=== PATIENT | female | born 1990 | race Caucasian/White ===

== ENCOUNTER 2018-11-11 03:39 | Inpatient (IN) | payer BC ==
[~2018-11-11 03:39] MED LIST: Bupivacaine 0.25% 10 ML SDV ONE
[2018-11-11] MEDS ORDERED: Nalbuphine 10 MG/1 ML Vial IVPUSH PRN (04:18)
[2018-11-11] MEDS ORDERED: Calcium Carbonate 500 MG Tab.Chew PO PRN (04:18)
[2018-11-11] MEDS ORDERED: Ondansetron 4 MG/2 ML SDV IVPUSH PRN ×2 (04:18→05:22)
[2018-11-11] MEDS ORDERED: Sodium Chloride 0.9% 10 ML Syringe FLUSH PRN (04:18)
[2018-11-11] MEDS ORDERED: Lidocaine 1% 50 ML MDV INJECT ONE (04:18)
[2018-11-11] MEDS: Lactated Ringers 1,000 ML IV SCH ×3 (04:20→07:40)
[2018-11-11] MEDS ORDERED: Oxytocin/Lactated Ringers 10 UNIT/1,000 ML BAG IV SCH ×2 (04:30)
[2018-11-11] MEDS ORDERED: Sodium Chloride 0.9% 500 ML ONE (04:56)
[2018-11-11] MEDS ORDERED: Vancomycin 2 GM in Sodium Chloride 0.9% 500 ML IV ONE (05:00)
[2018-11-11] MEDS ORDERED: ePHEDrine 50 MG/ML SDV IVPUSH PRN (05:22)
[2018-11-11] MEDS ORDERED: fentaNYL 100 MCG/2 ML SDV EPIDUR PRN (05:22)
--- NOTE | 2018-11-11 05:26 | PCM.PREANE ---
Preanesthetic Assessment - Anesthesia/Transfusion/Family Hx Anesthesia History: Prior Anesthesia Without Reaction Family History of Anesthesia Reaction: No Transfusion History: No Prior Transfusion(s) Intubation History: Unknown - Review of Systems General: No Symptoms Pulmonary: No Symptoms Cardiovascular: No Symptoms Gastrointestinal: No Symptoms Neurological: No Symptoms Other: Reports: None - Physical Assessment NPO Status Date: 11/10/18 NPO Status Time: 14:00 Vital Signs: HR:64 BP: 124/77 Resp: 16 Sat: 99% Temp: 97.3F Height: 1.6 m Weight: 86.183 kg ASA Class: 2 Mental Status: Alert & Oriented x3 Airway Class: Mallampati = 2 Dentition: Reports: Normal Dentition, Caries Thyro-Mental Finger Breadths: 3 Mouth Opening Finger Breadths: 3 ROM/Head Extension: Full Lungs: Clear to Auscultation, Normal Respiratory Effort Cardiovascular: Regular Rate, Regular Rhythm, No Murmurs - Lab Values: Laboratory Last Values WBC 11.34 K/mm3 (3.98-10.04) H 11/11/18 04:48 RBC 3.93 M/mm3 (3.98-5.22) L 11/11/18 04:48 Hgb 11.6 gm/L (11.2-15.7) 11/11/18 04:48 Hct 35.3 % (34.1-44.9) 11/11/18 04:48 MCV 89.8 fl (79.4-94.8) D 11/11/18 04:48 MCH 29.5 pg (25.6-32.2) 11/11/18 04:48 MCHC 32.9 g/dl (32.2-35.5) 11/11/18 04:48 RDW Std Deviation 45.1 fL (36.4-46.3) 11/11/18 04:48 Plt Count 155 K/mm3 (182-369) L 11/11/18 04:48 MPV 11.7 fl (9.4-12.3) 11/11/18 04:48 Above labs reviewed and noted and within acceptable ranges to proceed with epidural. - Allergies Allergies/Adverse Reactions: Allergies Allergy/AdvReac Type Severity Reaction Status Date / Time azithromycin [From Zithromax] Allergy Hives Verified 11/11/18 04:18 cephalexin Allergy Hives Verified 11/11/18 04:18 Penicillins Allergy Hives Verified 11/11/18 04:18 - Anesthesia Plan Pre-Op Medication Ordered: None - Acknowledgements Anesthesia Type Planned: Epidural Pt an Appropriate Candidate for the Planned Anesthesia: Yes Alternatives and Risks of Anesthesia Discussed w Pt/Guardian: Yes Pt/Guardian Understands and Agrees with Anesthesia Plan: Yes PreAnesthesia Questionnaire - CURRENT (IN HOUSE) MEDS Current Meds: Current Medications Calcium Carbonate/Glycine (Tums) 1,000 mg PO Q2H PRN PRN Reason: Indigestion Ephedrine Sulfate (Ephedrine Sulfate) 5 mg IVPUSH ASDIRECTED PRN PRN Reason: Hypotension Fentanyl (Sublimaze) 100 mcg EPIDUR Q3H PRN PRN Reason: Pain Fentanyl/Bupivacaine HCl (Fentanyl/Bupivacaine/Ns 2 Mcg-0.125% 100 Ml) 100 ml EPIDUR ASDIRECTED SHANE Lactated Ringer's (Ringers, Lactated) 1,000 mls @ 100 mls/hr IV ASDIRECTED SHANE Oxytocin/Lactated Ringer's (Pitocin In Lr 10 Units/1,000 Ml) 10 unit in 1,000 mls @ 12 mls/hr IV TITRATE SHANE; Protocol Oxytocin/Lactated Ringer's (Pitocin In Lr 10 Units/1,000 Ml) 10 unit in 1,000 mls @ 500 mls/hr IV .CONTINUOUS SHANE Vancomycin HCl 1 gm/ Sodium (Chloride) 250 mls @ 250 mls/hr IV Q12H SHANE Vancomycin HCl 2 gm/ Sodium (Chloride) 500 mls @ 250 mls/hr IV ONETIME ONE Stop: 11/11/18 06:59 Phenylephrine HCl 1 mg/ Sodium (Chloride) 10.1 mls @ 1 mls/sec IV TITRATE SHANE; Protocol Nalbuphine HCl (Nubain) 10 mg IVPUSH Q2H PRN PRN Reason: Pain Ondansetron HCl (Zofran) 4 mg IVPUSH Q4H PRN PRN Reason: Nausea/Vomiting Ondansetron HCl (Zofran) 4 mg IVPUSH ONETIME PRN PRN Reason: Nausea/Vomiting Sodium Chloride (Saline Flush) 10 ml FLUSH ASDIRECTED PRN PRN Reason: Keep Vein Open Discontinued Medications Vancomycin HCl 1 gm/ Sodium (Chloride) 250 mls @ 250 mls/hr IV Q12H SHANE Vancomycin HCl 1 gm/ Sodium (Chloride) 250 mls @ 250 mls/hr IV Q12H SHANE Sodium Chloride (Normal Saline) Confirm Administered Dose 500 mls @ as directed .ROUTE .[facility]-MED ONE Stop: 11/11/18 04:57 Lidocaine HCl (Xylocaine 1%) 50 ml INJECT ONETIME ONE Stop: 11/11/18 04:19
[2018-11-11] MEDS ORDERED: Bupivacaine/fentaNYL/NS 100 ML Bag EPIDUR SCH (05:30)
[2018-11-11] MEDS ORDERED: Phenylephrine 1 MG in Sodium Chloride 0.9% 10 ML IV SCH (05:30)
--- NOTE | 2018-11-11 06:20 | PCM.LDHP ---
L&D History of Present Illness - General Date of Service: 11/11/18 Admit Problem/Dx: Patient Status Order with Admit Dx/Problem 11/11/18 04:40 Admission Status [Patient Status] [ADT] Routine Admission Diagnosis/Problem Admission Diagnosis/Problem Source of Information: Patient History Limitations: Reports: No Limitations - History of Present Illness Introduction:: 28 yo at 40+ weeks gestation had SROM at home this am about 0230. She came in to the hospital and was 4 cm dilated on admission with strong regular contractions about every 2 minutes. Fluid is meconium stained. Her has been complicated by GBS positive vaginal swab and she is allergic to PCN and Cephalexin. The sensitivities for the GBS showed clindamycin resistance. Vancomycin 1 gm IV was ordered and started at about 0500. She transferred to my care from [place] at 30 weeks. labs all wnl and blood type O positive. Her 1 hour glucola was 76. She has had her Tdap. She was 6 cm at about 0430 and I came in to the hospital. Epidural was placed and dosed at about 6 am. Pain Score: 10 - Related Data Allergies/Adverse Reactions: Allergies Allergy/AdvReac Type Severity Reaction Status Date / Time azithromycin [From Zithromax] Allergy Hives Verified 11/11/18 04:18 cephalexin Allergy Hives Verified 11/11/18 04:18 Penicillins Allergy Hives Verified 11/11/18 04:18 Past Medical History - Past Health History Medical/Surgical History: Denies Medical/Surgical History [employer] History: Reports: Social & Family History - Family History Family Medical History: Noncontributory - Tobacco Use Smoking Status *Q: Never Smoker Tobacco Use Within Last Twelve Months: No - Alcohol Use Alcohol Use History: No - Recreational Drug Use Recreational Drug Use: No Drug Use in Last 12 Months: No - Living Situation & Occupation Living situation: Reports: 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) H&P Review of Systems - Review of Systems: Review Of Systems: See Below General: Reports: No Symptoms HEENT: Reports: No Symptoms Pulmonary: Reports: No Symptoms Cardiovascular: Reports: No Symptoms Gastrointestinal: Reports: No Symptoms Genitourinary: Reports: No Symptoms Musculoskeletal: Reports: No Symptoms Skin: Reports: No Symptoms Psychiatric: Reports: No Symptoms Neurological: Reports: No Symptoms Hematologic/Lymphatic: Reports: No Symptoms Immunologic: Reports: No Symptoms L&D Exam - Exam Exam: See Below - Vital Signs Weight: 86.183 kg - OB Specific Contraction Intensity: Strong Movement: Active Heart Tones: Present Heart Tones per Min: 125 Heart Rate (FHR) Variability: Moderate (6-25 bmp) Presentation: Vertex - Vogt Score Vogt Score Cervix Position: Anterior Vogt Score Consistency: Soft Vogt Score Effacement: >80% Vogt Score Dilation: > 5 cm Vogt Score Infant's Station: +1, +2 Vogt Score Total: 13 - Exam General: Alert, Oriented, Moderate Distress (Moderate distress with her contractions) HEENT: Conjunctiva Clear, Mucosa Moist & [place] Neck: Supple, Trachea Midline Lungs: Normal Respiratory Effort Cardiovascular: Regular Rate, Regular Rhythm Rectal Exam: Deferred Genitourinary: Normal external exam Back Exam: Normal Inspection, Full Range of Motion Extremities: Normal Inspection, No Pedal Edema Skin: Warm, Dry, Intact Neurological: Cranial Nerves Intact Psychiatric: Alert - Patient Data Lab Results Last 24 hrs: Laboratory Results - last 24 hr 11/11/18 Range/Units 04:48 WBC 11.34 H (3.98-10.04) K/mm3 RBC 3.93 L (3.98-5.22) M/mm3 Hgb 11.6 (11.2-15.7) gm/L Hct 35.3 (34.1-44.9) % MCV 89.8 D (79.4-94.8) fl MCH 29.5 (25.6-32.2) pg MCHC 32.9 (32.2-35.5) g/dl RDW Std Deviation 45.1 (36.4-46.3) fL Plt Count 155 L (182-369) K/mm3 MPV 11.7 (9.4-12.3) fl Result Diagrams: 11/11/18 04:48 - Problem List (1) Active labor at term SNOMED Code(s): 26986095 ICD Code: EAP9278 - Status: Acute Current Visit: Yes (2) Group B streptococcal carriage complicating SNOMED Code(s): 482948265800504 ICD Code: O99.820 - STREPTOCOCCUS B CARRIER STATE COMPLICATING Status: Acute Priority: High Current Visit: Yes (3) Thin meconium stained amniotic fluid SNOMED Code(s): 972678993 ICD Code: P96.83 - MECONIUM STAINING Status: Acute Priority: High Current Visit: Yes Problem List Initiated/Reviewed/Updated: Yes Orders Last 24hrs: Active Orders 24 hr Category Date Time Status Admission Status [Patient Status] [ADT] Routine ADT 11/11/18 04:40 Active Activity as Tolerated [RC] PFP Care 11/11/18 04:18 Active Communication Order [RC] ASDIRECTED Care 11/11/18 04:18 Active Heart Tones [RC] ASDIRECTED Care 11/11/18 04:19 Active Non Stress Test [RC] PER UNIT ROUTINE Care 11/11/18 04:18 Active Notify Provider [RC] ASDIRECTED Care 11/11/18 05:22 Active Notify Provider [RC] PFP Care 11/11/18 04:18 Active Notify Provider [RC] PRN Care 11/11/18 04:18 Active Oxygen Therapy [RC] ASDIRECTED Care 11/11/18 05:21 Active Peripheral IV Care [RC] . DIRECTED Care 11/11/18 04:19 Active Pulse Oximetry [RC] ASDIRECTED Care 11/11/18 05:21 Active Vital Signs [RC] PER UNIT ROUTINE Care 11/11/18 04:18 Active Regular Diet [DIET] Diet 11/11/18 Breakfast Active RAPID PLASMA REAGIN,RPR [CHEM] Routine Lab 11/11/18 04:48 Received Bupivacaine/fentaNYL/NS [fentaNYL/Bupivacaine/NS 2 MCG- Med 11/11/18 05:30 Active 0.125% 100 ML] 100 ml EPIDUR ASDIRECTED Calcium Carbonate [Tums] Med 11/11/18 04:18 Active 1,000 mg PO Q2H PRN Lactated Ringers [Ringers, Lactated] 1,000 ml Med 11/11/18 04:30 Active IV ASDIRECTED Nalbuphine [Nubain] Med 11/11/18 04:18 Active 10 mg IVPUSH Q2H PRN Ondansetron [Zofran] Med 11/11/18 05:22 Active 4 mg IVPUSH ONETIME PRN Ondansetron [Zofran] Med 11/11/18 04:18 Active 4 mg IVPUSH Q4H PRN Oxytocin/Lactated Ringers [Pitocin in LR 10 Units/1,000 Med 11/11/18 04:30 Active ML] 10 unit in 1,000 ml IV .CONTINUOUS Oxytocin/Lactated Ringers [Pitocin in LR 10 Units/1,000 Med 11/11/18 04:30 Active ML] 10 unit in 1,000 ml IV TITRATE Phenylephrine [Jaime-Synephrine] 1 mg Med 11/11/18 05:30 Active Sodium Chloride 0.9% [Normal Saline] 10 ml IV TITRATE Sodium Chloride 0.9% [Saline Flush] Med 11/11/18 04:18 Active 10 ml FLUSH ASDIRECTED PRN Vancomycin 2 gm Med 11/11/18 05:00 Active Sodium Chloride 0.9% [Normal Saline] 500 ml IV ONETIME Vancomycin [Vancocin] 1 gm Med 11/11/18 17:00 Active Sodium Chloride 0.9% [Normal Saline (AdvBag)] 250 ml IV Q12H ePHEDrine [ePHEDrine sulfate] Med 11/11/18 05:22 Active 5 mg IVPUSH ASDIRECTED PRN fentaNYL [Sublimaze] Med 11/11/18 05:22 Active 100 mcg EPIDUR Q3H PRN Electronic Heart Tones Ext w TOCO [WOMSER] Oth 11/11/18 04:18 Ordered Routine Electronic Heart Tones Internal [WOMSER] Per Unit Oth 11/11/18 04:18 Ordered Routine Peripheral IV Insertion Adult [OM.PC] Routine Oth 11/11/18 04:18 Ordered Resuscitation Status Routine Resus Stat 11/11/18 04:18 Ordered Medication Orders Calcium Carbonate/Glycine (Tums) 1,000 mg PO Q2H PRN PRN Reason: Indigestion Ephedrine Sulfate (Ephedrine Sulfate) 5 mg IVPUSH ASDIRECTED PRN PRN Reason: Hypotension Fentanyl (Sublimaze) 100 mcg EPIDUR Q3H PRN PRN Reason: Pain Last Admin: 11/11/18 05:40 Dose: 100 mcg Fentanyl/Bupivacaine HCl (Fentanyl/Bupivacaine/Ns 2 Mcg-0.125% 100 Ml) 100 ml EPIDUR ASDIRECTED [facility] Last Admin: 11/11/18 05:39 Dose: 100 ml Lactated Ringer's (Ringers, Lactated) 1,000 mls @ 100 mls/hr IV ASDIRECTED [facility] Last Admin: 11/11/18 05:25 Dose: 100 mls/hr Infusion: 11/11/18 05:25 Dose: 100 mls/hr Admin: 11/11/18 04:20 Dose: 100 mls/hr Oxytocin/Lactated Ringer's (Pitocin In Lr 10 Units/1,000 Ml) 10 unit in 1,000 mls @ 12 mls/hr IV TITRATE SHANE; Protocol Oxytocin/Lactated Ringer's (Pitocin In Lr 10 Units/1,000 Ml) 10 unit in 1,000 mls @ 500 mls/hr IV .CONTINUOUS SHANE Vancomycin HCl 1 gm/ Sodium (Chloride) 250 mls @ 250 mls/hr IV Q12H SHANE Vancomycin HCl 2 gm/ Sodium (Chloride) 500 mls @ 250 mls/hr IV ONETIME ONE Stop: 11/11/18 06:59 Last Admin: 11/11/18 05:20 Dose: 250 mls/hr Phenylephrine HCl 1 mg/ Sodium (Chloride) 10.1 mls @ 1 mls/sec IV TITRATE SHANE; Protocol Nalbuphine HCl (Nubain) 10 mg IVPUSH Q2H PRN PRN Reason: Pain Ondansetron HCl (Zofran) 4 mg IVPUSH Q4H PRN PRN Reason: Nausea/Vomiting Ondansetron HCl (Zofran) 4 mg IVPUSH ONETIME PRN PRN Reason: Nausea/Vomiting Sodium Chloride (Saline Flush) 10 ml FLUSH ASDIRECTED PRN PRN Reason: Keep Vein Open Assessment/Plan Comment:: female at 40 2/7 weeks gestation with SROM at home this am for meconium stained fluid. Currently in active labor. She is GBS positive with PCN and Cephalexin allergies and has Vancomycin 1 gm IV currently infusing. She has epidural in place and is comfortable. FHR is category I. Plan: Expectant management of labor, anticipate vaginal delivery. She plans to breast feed. Will need to monitor baby closely due to GBS positive and will probably have insufficient prophylaxis due to speed of labor.
--- NOTE | 2018-11-11 09:36 | PCM.DEL ---
L & D Note - General Info Date of Service: 11/11/18 Mother's Due Date: 11/09/18 - Delivery Note Labor: Spontaneous Delivery Outcome: Livebirth Infant Delivery Method: Spontaneous Vaginal Delivery-Single Infant Delivery Mode: Spontaneous Presentation: Right Occiput Anterior (CHRISTOPHER) Nuchal Cord: None Prep: Povidone-Iodine (Betadine Anesthesia Type: Epidural Amniotic Fluid Description: Meconium Stained Episiotomy Type: None Laceration: None Placenta: Intact, Spontaneous Cord: 3 Vessels Estimated Blood Loss: 100 Resuscitation Needed: No [place]: Suctioned, Bulb Syringe, Stimulated, Warmed, [place] Used Provider: Tabitha Mckeon Score 1 min: 7 Score 5 min: 9 Delivery Comments (Free Text/Narrative):: 28 yo at 40+2 weeks gestation had SROM at home this am about 0230. She came in to the hospital and was 4 cm dilated on admission with strong regular contractions about every 2 minutes. Fluid is meconium stained. Her has been complicated by GBS positive vaginal swab and she is allergic to PCN and Cephalexin. The sensitivities for the GBS showed clindamycin resistance. Vancomycin 1 gm IV was ordered and started at about 0500 and infusion complete about 0700. She transferred to my care from [place] at 30 weeks. labs all wnl and blood type O positive. Her 1 hour glucola was 76. She has had her Tdap. She was 6 cm at about 0430 and I came in to the hospital. Epidural was placed and dosed at about 6 am. She was 7 cm dilated at the time of epidural and contractions spaced out so we did start pitocin to augment labor at about 0800. Fetus tolerated labor with occasional variable decels and moderate variability. She was completely dilated at 0835 and she started pushing at 0844. She pushed well and baby's head was delivered from CHRISTOPHER position. The mouth and nose were suctioned with bulb suction at the perineum. There was no nuchal cord. The rest of the baby delivered without difficulty at 0851. Baby was vigorous and crying and is a baby girl. She was dried and stimulated, mouth and nose were again suctioned and baby was placed on mother's abdomen. Once cord stopped pulsating, it was clamped and cut. Placenta delivered spontaneously at 0856 and was intact. EBL was 100 ml. Fundus was firm after delivery and perineum was intact. Both Mom and baby were left in the delivery room in stable condition. - General Info Date of Service: 11/11/18 Admission Dx/Problem (Free Text): Patient Status Order with Admit Dx/Problem 11/11/18 04:40 Admission Status [Patient Status] [ADT] Routine Admission Diagnosis/Problem Admission Diagnosis/Problem Functional Status: Reports: Pain Controlled - Review of Systems General: Reports: No Symptoms HEENT: Reports: No Symptoms Pulmonary: Reports: No Symptoms Cardiovascular: Reports: No Symptoms Gastrointestinal: Reports: No Symptoms Genitourinary: Reports: No Symptoms Musculoskeletal: Reports: No Symptoms Skin: Reports: No Symptoms Neurological: Reports: No Symptoms Psychiatric: Reports: No Symptoms - Patient Data Vitals - Most Recent: Last Vital Signs Temp 36.3 C 11/11/18 04:18 Pulse 77 11/11/18 04:18 Resp 16 11/11/18 04:18 BP 124/77 11/11/18 04:18 Pulse Ox 99 11/11/18 04:18 Weight - Most Recent: 86.183 kg Lab Results Last 24 Hours: Laboratory Results - last 24 hr 11/11/18 Range/Units 04:48 WBC 11.34 H (3.98-10.04) K/mm3 RBC 3.93 L (3.98-5.22) M/mm3 Hgb 11.6 (11.2-15.7) gm/L Hct 35.3 (34.1-44.9) % MCV 89.8 D (79.4-94.8) fl MCH 29.5 (25.6-32.2) pg MCHC 32.9 (32.2-35.5) g/dl RDW Std Deviation 45.1 (36.4-46.3) fL Plt Count 155 L (182-369) K/mm3 MPV 11.7 (9.4-12.3) fl Med Orders - Current: Current Medications Calcium Carbonate/Glycine (Tums) 1,000 mg PO Q2H PRN PRN Reason: Indigestion Ephedrine Sulfate (Ephedrine Sulfate) 5 mg IVPUSH ASDIRECTED PRN PRN Reason: Hypotension Fentanyl (Sublimaze) 100 mcg EPIDUR Q3H PRN PRN Reason: Pain Last Admin: 11/11/18 05:40 Dose: 100 mcg Fentanyl/Bupivacaine HCl (Fentanyl/Bupivacaine/Ns 2 Mcg-0.125% 100 Ml) 100 ml EPIDUR ASDIRECTED SHANE Last Admin: 11/11/18 05:39 Dose: 100 ml Lactated Ringer's (Ringers, Lactated) 1,000 mls @ 100 mls/hr IV ASDIRECTED SHANE Last Admin: 11/11/18 07:40 Dose: 100 mls/hr Oxytocin/Lactated Ringer's (Pitocin In Lr 10 Units/1,000 Ml) 10 unit in 1,000 mls @ 12 mls/hr IV TITRATE SHANE; Protocol Last Titration: 11/11/18 08:25 Dose: 4 munits/min, 24 mls/hr Oxytocin/Lactated Ringer's (Pitocin In Lr 10 Units/1,000 Ml) 10 unit in 1,000 mls @ 500 mls/hr IV .CONTINUOUS SHANE Vancomycin HCl 1 gm/ Sodium (Chloride) 250 mls @ 250 mls/hr IV Q12H SHANE Phenylephrine HCl 1 mg/ Sodium (Chloride) 10.1 mls @ 1 mls/sec IV TITRATE SHANE; Protocol Nalbuphine HCl (Nubain) 10 mg IVPUSH Q2H PRN PRN Reason: Pain Ondansetron HCl (Zofran) 4 mg IVPUSH Q4H PRN PRN Reason: Nausea/Vomiting Ondansetron HCl (Zofran) 4 mg IVPUSH ONETIME PRN PRN Reason: Nausea/Vomiting Sodium Chloride (Saline Flush) 10 ml FLUSH ASDIRECTED PRN PRN Reason: Keep Vein Open Discontinued Medications Vancomycin HCl 1 gm/ Sodium (Chloride) 250 mls @ 250 mls/hr IV Q12H SHANE Vancomycin HCl 1 gm/ Sodium (Chloride) 250 mls @ 250 mls/hr IV Q12H SHANE Vancomycin HCl 2 gm/ Sodium (Chloride) 500 mls @ 250 mls/hr IV ONETIME ONE Stop: 11/11/18 06:59 Last Admin: 11/11/18 05:20 Dose: 250 mls/hr Sodium Chloride (Normal Saline) Confirm Administered Dose 500 mls @ as directed .ROUTE .[facility] ONE Stop: 11/11/18 04:57 Lidocaine HCl (Xylocaine 1%) 50 ml INJECT ONETIME ONE Stop: 11/11/18 04:19 - Exam General: Alert, Oriented HEENT: Pupils Equal Neck: Supple Lungs: Normal Respiratory Effort Cardiovascular: Regular Rate, Regular Rhythm (Female) Exam: Normal External Exam Extremities: Normal Inspection, No Pedal Edema Skin: Warm, Dry, Intact Neurological: No New Focal Deficit Psy/Mental Status: Alert, Normal Affect, Normal Mood - Problem List & Annotations (1) Active labor at term SNOMED Code(s): 75659637 Code(s): QJK0490 - Status: Resolved Current Visit: Yes (2) Group B streptococcal carriage complicating SNOMED Code(s): 066681200603756 Code(s): O99.820 - STREPTOCOCCUS B CARRIER STATE COMPLICATING Status: Acute Priority: High Current Visit: Yes (3) Thin meconium stained amniotic fluid SNOMED Code(s): 455091560 Code(s): P96.83 - MECONIUM STAINING Status: Acute Priority: High Current Visit: Yes (4) Normal spontaneous vaginal delivery SNOMED Code(s): 76700485, 480160365 Code(s): O80 - ENCOUNTER FOR FULL-TERM UNCOMPLICATED DELIVERY Status: Acute Current Visit: Yes (5) Post term over 40 weeks SNOMED Code(s): 338684200 Code(s): O48.0 - POST-TERM Status: Acute Current Visit: Yes - Problem List Review Problem List Initiated/Reviewed/Updated: Yes - My Orders Last 24 Hours: My Active Orders 11/11/18 04:18 Activity as Tolerated [RC] PFP Communication Order [RC] ASDIRECTED Notify Provider [RC] PFP Notify Provider [RC] PRN Vital Signs [RC] PER UNIT ROUTINE Calcium Carbonate [Tums] 1,000 mg PO Q2H PRN Nalbuphine [Nubain] 10 mg IVPUSH Q2H PRN Ondansetron [Zofran] 4 mg IVPUSH Q4H PRN Sodium Chloride 0.9% [Saline Flush] 10 ml FLUSH ASDIRECTED PRN Electronic Heart Tones Ext w TOCO [WOMSER] Routine Electronic Heart Tones Internal [WOMSER] Per Unit Routine Peripheral IV Insertion Adult [OM.PC] Routine Resuscitation Status Routine 11/11/18 04:19 Peripheral IV Care [RC] . DIRECTED 11/11/18 04:30 Lactated Ringers [Ringers, Lactated] 1,000 ml IV ASDIRECTED Oxytocin/Lactated Ringers [Pitocin in LR 10 Units/1,000 ML] 10 unit in 1,000 ml IV .CONTINUOUS Oxytocin/Lactated Ringers [Pitocin in LR 10 Units/1,000 ML] 10 unit in 1,000 ml IV TITRATE 11/11/18 04:40 Admission Status [Patient Status] [ADT] Routine 11/11/18 04:48 RAPID PLASMA REAGIN,RPR [CHEM] Routine 11/11/18 09:15 Patient Status Manage Transfer [TRANSFER] Routine 11/11/18 17:00 Vancomycin 1 gm Sodium Chloride 0.9% [Normal Saline] 250 ml IV Q12H 11/11/18 Breakfast Regular Diet [DIET] - Assessment Assessment:: G5 now P5 female at 40+2 weeks gestation with SROM and spontaneous labor and at 0851. She was GBS positive and had 1 dose of vancomycin IV that was infused by 0700 for prophylaxis. She is stable . There was no perineal tear. - Plan Plan:: female at 40 2/7 weeks gestation with SROM at home this am for meconium stained fluid. Currently in active labor. She is GBS positive with PCN and Cephalexin allergies and has Vancomycin 1 gm IV currently infusing. She has epidural in place and is comfortable. FHR is category I. Plan: Expectant management of labor, anticipate vaginal delivery. She plans to breast feed. Will need to monitor baby closely due to GBS positive and will probably have insufficient prophylaxis due to speed of labor. 11/11/18 0930: 1. Routine care. 2. support. 3. Will sign out to Dr. Corado for the weekend.
[2018-11-11] MEDS ORDERED: Acetaminophen 325 MG Tab PO PRN (09:41)
[2018-11-11] MEDS ORDERED: Witch Hazel Medicated Pads 40/Jar TOP PRN (09:41)
[2018-11-11] MEDS ORDERED: Prenatal Multivitamin with Calcium/Folic Acid/Iron Tab PO SCH (09:41)
[2018-11-11] MEDS ORDERED: Lanolin 100% Cream 7 GM Tube TOP PRN (09:41)
[2018-11-11] MEDS ORDERED: Docusate Sodium 100 MG Cap PO PRN (09:41)
[2018-11-11] MEDS: Ibuprofen 600 MG Tab PO PRN ×2 (10:01→17:53)
[2018-11-12] MEDS: Ibuprofen 600 MG Tab PO PRN (02:22)
--- NOTE | 2018-11-12 08:17 | PCM.DCSUM1 ---
Discharge Summary - Hospital Course HPI Initial Comments: Doing great today. 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 Diagnosis: Stroke: No - Discharge Data Discharge Date: 11/12/18 Discharge Disposition: Home, Self-Care 01 Condition: Good - Patient Summary/Data Hospital Course: Unremarkable labor, delivery and course. - Patient Instructions Diet: Usual Diet as Tolerated Activity: No Strenuous Activities Driving: May Drive Today Notify Provider of: Fever, Increased Pain, Swelling and Redness, Drainage, Nausea and/or Vomiting - Discharge Plan *PRESCRIPTION DRUG MONITORING PROGRAM REVIEWED*: No *COPY OF PRESCRIPTION DRUG MONITORING REPORT IN PATIENT DEN: No Home Medications: Home Meds [id number]/Iron Fumarate/FA/DSS [ 19 Tablet] 1 each PO DAILY 11/11/18 [ History] Referrals: Tabitha Mckeon MD [Primary Care Provider] - (2 weeks) - Discharge Summary/Plan Comment DC Time >30 min.: No - General Info Date of Service: 11/12/18 Functional Status: Reports: Pain Controlled - Review of Systems General: Reports: No Symptoms HEENT: Reports: No Symptoms Pulmonary: Reports: No Symptoms Cardiovascular: Reports: No Symptoms Gastrointestinal: Reports: No Symptoms Genitourinary: Reports: No Symptoms Musculoskeletal: Reports: No Symptoms Skin: Reports: No Symptoms Neurological: Reports: No Symptoms Psychiatric: Reports: No Symptoms - Patient Data Vitals - Most Recent: Last Vital Signs Temp 36.8 C 11/12/18 02:27 Pulse 72 11/12/18 02:27 Resp 17 11/12/18 02:27 BP 120/68 11/12/18 02:27 Pulse Ox 97 11/12/18 02:27 Weight - Most Recent: 86.183 kg Lab Results - Last 24 hrs: Laboratory Results - last 24 hr 11/11/18 Range/Units 04:48 RPR Non-reactive (NONREACTIVE) Med Orders - Current: Current Medications Acetaminophen (Tylenol) 650 mg PO Q4H PRN PRN Reason: mild pain or fever Docusate Sodium (Colace) 100 mg PO BID PRN PRN Reason: Constipation Last Admin: 11/11/18 10:03 Dose: 100 mg Emollient Ointment (Lansinoh Hpa) 0 gm TOP ASDIRECTED PRN PRN Reason: Sore Nipples Last Admin: 11/11/18 10:02 Dose: 1 tube Ibuprofen (Motrin) 600 mg PO Q6H PRN PRN Reason: Mild pain or fever Last Admin: 11/12/18 02:22 Dose: 600 mg Prenat Multivit/Primary Education Professor/Iron/Folic Ac ( Plus Iron) 1 each PO DAILY SHANE Last Admin: 11/11/18 10:02 Dose: 1 each Witch [place] (Tucks) 1 pad TOP ASDIRECTED PRN PRN Reason: Perineal Comfort Measure Last Admin: 11/11/18 10:02 Dose: 1 container Discontinued Medications Bupivacaine HCl (Sensorcaine-Mpf 0.25%) 10 ml .ROUTE .STK-MED ONE Stop: 11/11/18 00:01 Calcium Carbonate/Glycine (Tums) 1,000 mg PO Q2H PRN PRN Reason: Indigestion Ephedrine Sulfate (Ephedrine Sulfate) 5 mg IVPUSH ASDIRECTED PRN PRN Reason: Hypotension Fentanyl (Sublimaze) 100 mcg EPIDUR Q3H PRN PRN Reason: Pain Last Admin: 11/11/18 05:40 Dose: 100 mcg Fentanyl/Bupivacaine HCl (Fentanyl/Bupivacaine/Ns 2 Mcg-0.125% 100 Ml) 100 ml EPIDUR ASDIRECTED [facility] Last Admin: 11/11/18 05:39 Dose: 100 ml Lactated Ringer's (Ringers, Lactated) 1,000 mls @ 100 mls/hr IV ASDIRECTED [facility] Last Admin: 11/11/18 07:40 Dose: 100 mls/hr Oxytocin/Lactated Ringer's (Pitocin In Lr 10 Units/1,000 Ml) 10 unit in 1,000 mls @ 12 mls/hr IV TITRATE SHANE; Protocol Last Titration: 11/11/18 08:25 Dose: 4 munits/min, 24 mls/hr Oxytocin/Lactated Ringer's (Pitocin In Lr 10 Units/1,000 Ml) 10 unit in 1,000 mls @ 500 mls/hr IV .CONTINUOUS SHANE Vancomycin HCl 1 gm/ Sodium (Chloride) 250 mls @ 250 mls/hr IV Q12H [facility] Last Admin: 11/11/18 14:48 Dose: Not Given Vancomycin HCl 1 gm/ Sodium (Chloride) 250 mls @ 250 mls/hr IV Q12H SHANE Vancomycin HCl 1 gm/ Sodium (Chloride) 250 mls @ 250 mls/hr IV Q12H SHANE Vancomycin HCl 2 gm/ Sodium (Chloride) 500 mls @ 250 mls/hr IV ONETIME ONE Stop: 11/11/18 06:59 Last Admin: 11/11/18 05:20 Dose: 250 mls/hr Sodium Chloride (Normal Saline) Confirm Administered Dose 500 mls @ as directed .ROUTE .STK-MED ONE Stop: 11/11/18 04:57 Last Admin: 11/11/18 14:48 Dose: Not Given Phenylephrine HCl 1 mg/ Sodium (Chloride) 10.1 mls @ 1 mls/sec IV TITRATE SHANE; Protocol Lidocaine HCl (Xylocaine 1%) 50 ml INJECT ONETIME ONE Stop: 11/11/18 04:19 Last Admin: 11/11/18 14:48 Dose: Not Given Nalbuphine HCl (Nubain) 10 mg IVPUSH Q2H PRN PRN Reason: Pain Ondansetron HCl (Zofran) 4 mg IVPUSH Q4H PRN PRN Reason: Nausea/Vomiting Ondansetron HCl (Zofran) 4 mg IVPUSH ONETIME PRN PRN Reason: Nausea/Vomiting Sodium Chloride (Saline Flush) 10 ml FLUSH ASDIRECTED PRN PRN Reason: Keep Vein Open - Exam General: Reports: Alert, Oriented HEENT: Reports: Pupils Equal, Pupils Reactive, EOMI, Mucous Membr. Moist/[place] Neck: Reports: Supple Lungs: Reports: Clear to Auscultation, Normal Respiratory Effort Cardiovascular: Reports: Regular Rate, Regular Rhythm GI/Abdominal Exam: Normal Bowel Sounds, Soft, Non-Tender Rectal (Female) Exam: Normal Exam, Normal Rectal Tone Back Exam: Reports: Normal Inspection, Full Range of Motion Extremities: Normal Inspection, Normal Range of Motion, Non-Tender, No Pedal Edema, Normal Capillary Refill Skin: Reports: Warm, Dry, Intact Wound/Incisions: Reports: Healing Well Neurological: Reports: No New Focal Deficit Psy/Mental Status: Reports: Alert, Normal Affect, Normal Mood
--- NOTE | 2018-11-12 09:30 | PCM48HPAN ---
Post Anesthesia Note - EVALUATION WITHIN 48HRS OF ANESTHETIC Vital Signs in Normal Range: Yes Patient Participated in Evaluation: Yes Respiratory Function Stable: Yes Airway Patent: Yes Cardiovascular Function Stable: Yes Hydration Status Stable: Yes Pain Control Satisfactory: Yes Nausea and Vomiting Control Satisfactory: Yes Mental Status Recovered: Yes Vital Signs: Last Vital Signs Temp 36.8 C 11/12/18 02:27 Pulse 72 11/12/18 02:27 Resp 17 11/12/18 02:27 BP 120/68 11/12/18 02:27 Pulse Ox 97 11/12/18 02:27
== END 2018-11-12 13:35 | disposition home or self-care (01) | DRG 560 ==
LOC: JD.OBCHECK 03:39 → JD.OB 03:39 → JD.OBCHECK 04:17 → OBSVTOIN 04:40 → JD.OB 04:40 → JD.MS 08:55
PROVIDERS: ADMIT Family Medicine; ATTEND Family Medicine
PROC: 10E0XZZ Delivery of Products of Conception, External Approach (ICD-10-PCS; principal; 2018-11-11)
DX: O48.0 Post-term pregnancy (principal); O99.824 Streptococcus B carrier state complicating childbirth; O77.0 Labor and delivery complicated by meconium in amniotic fluid; Z3A.40 40 weeks gestation of pregnancy; Z37.0 Single live birth
CPT/HCPCS: 01967; 36415; 51702; 59025; 59409; 85027; 86592; A9270-GY; J2590; J3010; J3370; J3490; J7040; J7120